=== PATIENT | male | born 1990 | race Caucasian/White ===

== ENCOUNTER 2025-05-07 18:12 | Emergency (ER) | payer OTHER ==
[~2025-05-07] VITALS: Ht 170.2 cm; Wt 75.0 kg
[2025-05-07 18:59] VITALS: TEMP 98.4
[2025-05-07] MEDS ORDERED: BUPR1FIL21 SL (19:01)
[2025-05-07] MEDS: ACETAMINOPHEN 500 MG TABLET PO ONE (20:18)
[2025-05-07] MEDS: BACITRACIN 28 GM OINTMENT TP ONE (20:22)
[2025-05-07 20:33] VITALS: BP 130/81; PULSE 72; RESP 16; O2SAT 100
== END 2025-05-07 20:37 | disposition home or self-care (01) ==
LOC: EMS 18:12
DX: S60.512A Abrasion of left hand, initial encounter (principal); Z79.891 Long term (current) use of opiate analgesic; W22.8XXA Striking against or struck by other objects, initial encounter; Y93.89 Activity, other specified; Y92.89 Other specified places as the place of occurrence of the external cause; Y99.0 Civilian activity done for income or pay
CPT/HCPCS: 99283